=== PATIENT | male | born 1980 | race Caucasian/White ===

== ENCOUNTER 2018-03-06 08:09 | Emergency (ER) | payer OTHER ==
[2018-03-06 08:18] VITALS: BP 126/64
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
== END 2018-03-06 10:40 | disposition home or self-care (01) ==
LOC: ED 08:09
DX: M54.2 Cervicalgia (principal); M25.512 Pain in left shoulder; R07.81 Pleurodynia
CPT/HCPCS: 99282